=== PATIENT | male | born 1960 | race Caucasian/White ===

== ENCOUNTER 2017-03-06 15:36 | Observation (INO) ==
--- NOTE | 2017-03-06 16:06 | Emergency Department Note ---
Disposition Clinical Impression: Elevated troponin Disposition: Admitted As Inpatient Forms: Work/School Release, ED Satisfaction Letter Abdominal Pain HPI - General Chief Complaint: ED Abdominal Pain Stated Complaint: Left abd pain Time Seen by Provider: 03/06/17 15:46 Source: patient, family Nursing Notes Reviewed: Yes Vital Signs Reviewed: Yes - History of Present Illness HPI Narrative: Patient complains of 8 days of left upper quadrant abdominal pain. Patient denies shortness of breath associated with this. Patient was seen at an outside hospital for abdominal pain his workup was negative. Patient continued to have worsening pain to the side. Patient denies any injury denies numbness and tingling. Patient denies any shortness of breath or bowel bladder dysfunction associated. Patient denies any vision changes associated. He states he was told he had inflammation and to follow-up with his doctor. Pain Scale: 10 - Related Data Home Medications Medication Instructions Recorded Confirmed Lisinopril [Zestril] 20 mg PO DAILY 03/10/16 03/03/17 Hydrochlorothiazide 1 tab PO DAILY 03/03/17 03/03/17 Previous Rx's Medication Instructions Recorded Albuterol Sulfate [Albuterol 2 puff IH Q4-6H PRN #1 puff 12/12/15 Inhaler] Albuterol Neb [Proventil Neb] 2.5 mg IH Q4HR #40 vial.neb 11/28/16 Famotidine [Pepcid] 20 mg PO BID #30 tablet 03/03/17 Allergies Allergy/AdvReac Type Severity Reaction Status Date / Time No Known Allergies Allergy Verified 12/12/15 14:40 All systems ED: reviewed and negative except as stated. Abdominal Pain PMH - Past Medical History Medical history: Reports: asthma, COPD, hyperlipidemia, hypertension, other Male Surgical History: Reports: no surgical history Psychiatric history: Reports: no psych history - Social History Smoking status: Former smoker Alcohol use: Reports: occasionally Drug use: Reports: none Physical Exam - General Limitations: no limitations General appearance: alert, in distress - Head Head exam: atraumatic, normocephalic, normal inspection - Eye Eye exam: Present: normal appearance, PERRL, EOMI - ENT ENT exam: normal exam, normal oropharynx, mucous membranes moist - Neck Neck exam: Present: normal inspection, full ROM, trachea midline - Chest Chest inspection: Present: normal inspection, symmetric chest wall rise - Respiratory Respiratory exam: Present: normal lung sounds bilaterally - Cardiovascular Cardiovascular exam: Present: regular rate, normal rhythm, normal heart sounds - Abdominal Exam Abdominal exam: Present: soft, tenderness. Absent: distention, guarding, rebound Abdominal tenderness: Present: LUQ - Extremities Exam Extremities exam: Present: pedal edema. Absent: tenderness - Back Exam Back exam: Present: normal inspection, full ROM. Absent: tenderness - Neurological Exam Neurological exam: Present: alert, oriented X3 - Psychiatric Psychiatric exam: Present: normal affect, normal mood - Skin Skin exam: Present: warm, dry, intact, normal color Course Vital Signs Temperature 97.3 F L 03/06/17 15:38 Pulse Rate 85 03/06/17 15:38 Respiratory Rate 18 03/06/17 15:38 Blood Pressure 195/96 03/06/17 15:38 O2 Sat by Pulse Oximetry 93 03/06/17 15:38 Temperature 97.3 F L 03/06/17 15:38 Pulse Rate 85 03/06/17 15:38 Respiratory Rate 18 03/06/17 15:38 Blood Pressure 195/96 03/06/17 15:38 O2 Sat by Pulse Oximetry 92 03/06/17 17:18 Oxygen Delivery Oxygen Delivery Room Air Abdominal Pain - Differential Diagnosis Differential Diagnosis: Likely: abdominal pain non-specific, acute appendicitis , colonic obstruction, diverticulitis, gastroenteritis, pancreatitis - Lab Data Lab results reviewed: Yes I reviewed the patient's lab results. Result diagrams: 03/06/17 16:12 03/06/17 16:12 Lab Results 03/06/17 03/06/17 03/06/17 Range/Units 16:12 16:12 16:12 WBC 7.7 (4.3-11.1) K/mcL RBC 4.84 (4.19-5.50) M/mcL Hgb 15.1 (12.9-16.9) g/dL Hct 45.9 (37.5-50.1) % MCV 94.8 (83.0-100.0) fL MCH 31.2 (28.0-33.3) pg MCHC 32.9 (31.6-35.5) g/dL RDW 12.9 (11.5-14.5) % Plt Count 111 L (140-400) K/mcL MPV 13.1 H (9.4-12.4) fL Immature Gran % 0.4 (0-4) % Seg Neutrophils % 67.5 % Lymphocytes % 20.5 % Monocytes % 8.8 % Eosinophils % 1.9 % Basophils % 0.9 % Neutrophils # 5.2 (1.6-8.9) K/mcL Lymphocytes # 1.6 (0.6-4.6) K/mcL Monocytes # 0.7 (0.0-1.3) K/mcL Eosinophils # 0.2 (0.0-0.6) K/mcL Basophils # 0.1 (0.0-0.2) K/mcL Sodium 139 (136-145) mEq/L Potassium 3.7 (3.5-4.5) mEq/L Chloride 99 (98-109) mEq/L Carbon Dioxide 30 H (19-29) mEq/L BUN 14 (8-26) mg/dL Creatinine 1.12 (0.72-1.25) mg/dL Est GFR ( Amer) > 60 (> 60) Est GFR (Non-Af Amer) > 60 (> 60) BUN/Creatinine Ratio 13 (6-26) Glucose 175 H (70-99) mg/dL Calculated Osmolality 293 (280-300) Lactic Acid 1.9 (0.5-2.2) mmol/L Calcium 9.7 (8.6-10.8) mg/dL Total Bilirubin 0.8 (0.2-1.2) mg/dL AST 49 H (5-34) Units/L ALT 53 (0-55) Units/L Alkaline Phosphatase 59 (38-126) Units/L Troponin I (0-0.03) ng/mL B-Natriuretic Peptide (0-100) pg/mL Serum Total Protein 7.5 (6.0-8.3) g/dL Albumin 3.7 (3.5-5.0) g/dL Globulin 3.8 H (2.4-3.5) g/dL Albumin/Globulin Ratio 1.0 L (1.1-2.2) Lipase 47 (8-78) Units/L Urine Color (Yellow) Urine Clarity (Clear) Urine pH (5.0-8.0) pH Units Ur Specific [place] (1.010-1.025) Urine Protein (Neg-Trace) mg/dL Urine Glucose (UA) (Normal) mg/dL Urine Ketones (Negative) mg/dL Urine Blood (Negative) Urine Nitrite (Negative) Urine Bilirubin (Negative) Urine Urobilinogen (Normal) mg/dL Ur Leukocyte Esterase (Negative) Urine Microscopic RBC (0-3) per hpf Urine Microscopic WBC (0-3) per hpf Ur Squamous Epith Cells (None-Few) per lpf Urine Bacteria (None-Few) per hpf Hyaline Casts (None-Few) per lpf Ur Culture Indicated? (NO) 03/06/17 03/06/17 03/06/17 Range/Units 16:12 16:12 17:22 WBC (4.3-11.1) K/mcL RBC (4.19-5.50) M/mcL Hgb (12.9-16.9) g/dL Hct (37.5-50.1) % MCV (83.0-100.0) fL MCH (28.0-33.3) pg MCHC (31.6-35.5) g/dL RDW (11.5-14.5) % Plt Count (140-400) K/mcL MPV (9.4-12.4) fL Immature Gran % (0-4) % Seg Neutrophils % % Lymphocytes % % Monocytes % % Eosinophils % % Basophils % % Neutrophils # (1.6-8.9) K/mcL Lymphocytes # (0.6-4.6) K/mcL Monocytes # (0.0-1.3) K/mcL Eosinophils # (0.0-0.6) K/mcL Basophils # (0.0-0.2) K/mcL Sodium (136-145) mEq/L Potassium (3.5-4.5) mEq/L Chloride (98-109) mEq/L Carbon Dioxide (19-29) mEq/L BUN (8-26) mg/dL Creatinine (0.72-1.25) mg/dL Est GFR ( Amer) (> 60) Est GFR (Non-Af Amer) (> 60) BUN/Creatinine Ratio (6-26) Glucose (70-99) mg/dL Calculated Osmolality (280-300) Lactic Acid (0.5-2.2) mmol/L Calcium (8.6-10.8) mg/dL Total Bilirubin (0.2-1.2) mg/dL AST (5-34) Units/L ALT (0-55) Units/L Alkaline Phosphatase (38-126) Units/L Troponin I 0.04 H* (0-0.03) ng/mL B-Natriuretic Peptide 223 H (0-100) pg/mL Serum Total Protein (6.0-8.3) g/dL Albumin (3.5-5.0) g/dL Globulin (2.4-3.5) g/dL Albumin/Globulin Ratio (1.1-2.2) Lipase (8-78) Units/L Urine Color Yellow (Yellow) Urine Clarity Clear (Clear) Urine pH 6.0 (5.0-8.0) pH Units Ur Specific [place] 1.019 (1.010-1.025) Urine Protein Trace (Neg-Trace) mg/dL Urine Glucose (UA) Normal (Normal) mg/dL Urine Ketones Negative (Negative) mg/dL Urine Blood Negative (Negative) Urine Nitrite Negative (Negative) Urine Bilirubin Negative (Negative) Urine Urobilinogen Normal (Normal) mg/dL Ur Leukocyte Esterase Negative (Negative) Urine Microscopic RBC 3-5 H (0-3) per hpf Urine Microscopic WBC 0-3 (0-3) per hpf Ur Squamous Epith Cells Moderate H (None-Few) per lpf Urine Bacteria None Seen (None-Few) per hpf Hyaline Casts None Seen (None-Few) per lpf Ur Culture Indicated? NO (NO) - Radiology Data Radiology results reviewed: Yes I reviewed the patient's radiology results. - EKG Data EKG attestation: Yes I reviewed and interpreted this EKG. EKG results narrative: EKG is unchanged from previous EKG shows normal: sinus rhythm Rate: normal Rhythm: NSR Critical Care Time Total Critical Care Time: 30 Attestation: Critical care performed: Time is exclusive of separately billable procedures. Time includes: direct patient care, patient reassessment, coordination of patient care, interpretation of data (laboratory data, radiology data, and respiratory data), review of patient's medical records, medical consultation and documentation of patient care. Procedures included in critical care time: Procedures excluded from critical care time:
[2017-03-06 16:21] LABS: Basophils # 0.1 K/mcL (0.0-0.2); Basophils % 0.9 %; Eosinophils # 0.2 K/mcL (0.0-0.6); Eosinophils % 1.9 %; Hematocrit 45.9 % (37.5-50.1); Hemoglobin 15.1 g/dL (12.9-16.9); Immature Granulocytes % 0.4 % (0-4); Lymphocytes # 1.6 K/mcL (0.6-4.6); Lymphocytes % 20.5 %; Mean Corpuscular HGB Conc 32.9 g/dL (31.6-35.5); Mean Corpuscular Hemoglobin 31.2 pg (28.0-33.3); Mean Corpuscular Volume 94.8 fL (83.0-100.0); Mean Platelet Volume 13.1 fL (9.4-12.4); Monocytes # 0.7 K/mcL (0.0-1.3); Monocytes % 8.8 %; Neutrophils # 5.2 K/mcL (1.6-8.9); Platelet Count 111 K/mcL (140-400); Red Blood Count 4.84 M/mcL (4.19-5.50); Red Cell Distribution Width 12.9 % (11.5-14.5); Segmented Neutrophils % 67.5 %
[2017-03-06 16:40] LABS: Alanine Aminotransferase 53 Units/L (0-55); Albumin 3.7 g/dL (3.5-5.0); Alkaline Phosphatase 59 Units/L (38-126); Aspartate Amino Transferase 49 Units/L (5-34); BUN/Creatinine Ratio 13 (6-26); Bilirubin,Total 0.8 mg/dL (0.2-1.2); Blood Urea Nitrogen 14 mg/dL (8-26); Calcium 9.7 mg/dL (8.6-10.8); Carbon Dioxide 30 mEq/L (19-29); Chloride 99 mEq/L (98-109); Globulin 3.8 g/dL (2.4-3.5); Glucose 175 mg/dL (70-99); Lipase 47 Units/L (8-78); Osmolality,Calculated 293 (280-300); Potassium 3.7 mEq/L (3.5-4.5); Sodium 139 mEq/L (136-145); Total Protein 7.5 g/dL (6.0-8.3); eGFR For African Americans > 60 (> 60); eGFR For Non-African Americans > 60 (> 60)
[2017-03-06 17:33] LABS: Bilirubin,Urine Negative (Negative); Blood,Urine Negative (Negative); Clarity,Urine Clear (Clear); Color,Urine Yellow (Yellow); Glucose,Urine (UA) Normal (Normal); Ketones,Urine Negative (Negative); Leukocyte Esterase,Urine Negative (Negative); Nitrite,Urine Negative (Negative); Protein,Urine Trace mg/dL (Neg-Trace); Specific Gravity,Urine 1.019 (1.010-1.025); Urobilinogen,Urine Normal (Normal)
[2017-03-06 17:34] LABS: Bacteria,Urine None Seen per hpf (None-Few); Hyaline Casts,Urine None Seen per lpf (None-Few); Squamous Epithelial Cell,Urine Moderate per lpf (None-Few); WBC,Urine 0-3 per hpf (0-3)
[2017-03-06] MEDS ORDERED: *HR* Morphine 2 MG/ML SYRINGE IV ONE (17:55)
--- NOTE | 2017-03-06 20:44 | Internal Med History&Physical ---
<Sara Almodovar - Last Filed: 03/06/17 21:39> Date of Encounter: 03/06/17 Time of Encounter: 19:30 Assessment and Plan (1) Elevated troponin Current visit: Yes Status: Acute - Elevated troponin at 0.04 in ED. - EKG is similar to prior one in 2013 without significant ischemic change. - Patient does have cardiovascular risk factors including HTN, hyperlipidemia, obesity and smoking history. - Start aspirin and statin. - Continue to trend troponin. - Telemetry monitoring. (2) CHF (congestive heart failure) Current visit: Yes Status: Suspected - Concern of congestion heart failure given reported worsening weight gain and BLE swelling with recent abnormal echo. - Per [facility] record, echocardiogram done in August 2016 found normal LV systolic function but cannot rule out regional motion abnormality given the poor quality of study. - Will obtain echocardiogram for further evaluation. - Strict I/O, daily weight and fluid restriction. - Consider diuresis. Qualifiers: Congestive heart failure type: unspecified congestive heart failure type Congestive heart failure chronicity: unspecified congestive heart failure chronicity Qualified Code(s): I50.9 - Heart failure, unspecified (3) Abdominal pain Current visit: No Status: Acute - CT A/P on 03/03: No acute abnormality. Small fat containing ventral hernia noted. - XR chest and abdomen on 03/06: nonspecific gas pattern but no evidence of distention, obstruction or perforation. - LUQ/left flank pain most likely musculoskeletal given the pain is reproducible on palpation and unremarkable abdominal imagings. - Pain control with heating pad and prn Tylenol. Qualifiers: Abdominal location: left upper quadrant Qualified Code(s): R10.12 - Left upper quadrant pain (4) Hypertension Current visit: Yes Status: Chronic - Continue home antihypertensive regimen. Qualifiers: Hypertension type: essential hypertension Qualified Code(s): I10 - Essential (primary) hypertension (5) Hyperlipidemia Current visit: Yes Status: Chronic - Will check lipid panel. Qualifiers: Hyperlipidemia type: unspecified Qualified Code(s): E78.5 - Hyperlipidemia , unspecified (6) COPD (chronic obstructive pulmonary disease) Current visit: Yes Status: Suspected - Patient likely has undiagnosed COPD given his significant smoking history and occasional wheezes noted on lung auscultation. - Bronchodilator prn. Qualifiers: COPD type: unspecified COPD Qualified Code(s): J44.9 - Chronic obstructive pulmonary disease, unspecified (7) DVT prophylaxis Current visit: Yes Status: Acute - SQ heparin. Internal Medicine - H&P: HPI Chief complaint: LUQ/left flank pain Admitted From: Emergency Dept Plans for Post Hospital Care: Home History of present illness: Mr. Wade is a 56 year old male with PMH of HTN and hyperlipidemia who presented to [facility] ED with 9-day history of LUQ/left flank pain. Patient describes the pain as constant dull pain aggravated by moving but it's not affected by eating and no alleviating factor. Patient denies known recent trauma or injury but thinks he may injury during sleepwalking. Patient also reports worsening bilateral lower extremity edema with weight gain of 25 lbs over past one month. Patient denies chest pain/discomfort, diaphoresis, palpitation, lightheadedness, syncope, dyspnea, cough, nausea, vomiting, diarrhea, constipation, hematochezia, melena, hematuria, dysuria, fever, chills. Patient denies having any known cardiac diagnosis but reports having echocardiogram done at [facility] 2 months ago and was told to have some abnormal findings which patient cannot recall at this time. Patient currently smokes e-cigarette but did smoke 1 &1/2 packs per day for 25 years. Patient denies being diagnosed with COPD or sleep apnea but does admit snoring at sleep. Patient is full code. Past Med Surg Social Fam HX - Past Medical History Medical history: hyperlipidemia, hypertension, other Psychiatric history: no psych history - Past Surgical History Surgical History: no surgical history - Social History Smoking Status: Former smoker Smokeless Tobacco Status: No Alcohol use: occasionally Drug use: none - Family History Father Living Status: Hx Family Cardiac Disorders: Yes (HTN, hyperlipidemia) Hx Family Respiratory Disorders: No Hx Family Cancer: No Hx Family GI Disorders: No Hx Family Genitourinary Disorders: No Hx Family Endocrine Disorder: No Hx Family Musculoskeletal Disorders: No Hx Family Neuromuscular Disorders: No Hx Family Neurologic Disorders: Yes (CVA) Hx Family HEENT Disorders: No Hx Family Autoimmune Disorders: No Hx Family Reproductive Disorders: No Hx Family Psychosocial Disorders: No Hx Family Medical Disorders: No Internal Medicine - H&P: Meds Lisinopril [Zestril] 20 mg PO DAILY 03/10/16 [History] Hydrochlorothiazide 10 tab PO DAILY 03/03/17 [History] Allergies No Known Allergies Allergy (Verified 12/12/15 14:40) All Systems PM: A 10-system review of systems was performed and is negative for pertinent findings except as documented above in the HPI. - Constitutional Constitutional: weight gain, no anorexia, no chills, no fever(s) - EENT Eyes: no change in vision Ears: no decreased hearing Nose, mouth and throat: no dysphagia, no odynophagia - Cardiovascular Cardiovascular ROS IM: edema, no chest pain, no diaphoresis, no lightheadedness , no palpitations, no syncope - Respiratory Respiratory: snoring, no cough, no dyspnea, no hemoptysis - Gastrointestinal Gastrointestinal: as per HPI, no hematemesis, no melena, no nausea, no vomiting - Genitourinary Genitourinary ROS male: no difficulty urinating, no dysuria, no hematuria - Musculoskeletal Musculoskeletal ROS IM: no arthralgias, no back pain - Integumentary Integumentary IM: no pruritus, no rash - Neurological Neurological ROS: no focal weakness, no numbness, no tingling - Hematologic/Lymphatic Hematologic/Lymphatic: no easy bleeding, no easy bruising - Constitutional Vitals: Temp Pulse Resp BP Pulse Ox 97.9 F 63 18 165/84 92 03/06/17 18:58 03/06/17 18:58 03/06/17 18:58 03/06/17 18:58 03/06/17 18:58 General appearance: Present: cooperative, A&O X 3, no acute distress, obese, answers questions appropriately - Head Head exam: Present: atraumatic, normocephalic - Eye Eye exam: Present: PERRL, conjuntiva pink, sclera anicteric Pupils: Present: PERRL - Neck Neck exam general surgery: Present: supple, trachea midline. Absent: lymphadenopathy - Respiratory Respiratory exam: Present: decreased breath sounds, wheezes (Occasional). Absent: accessory muscle use, rales, rhonchi - Cardiovascular Cardiovascular exam: Present: RRR, +S1, +S2. Absent: diastolic murmur, gallop, rubs, systolic murmur - GI/Abdominal GI/Abdominal exam: Present: distended, normal bowel sounds, soft, tenderness ( LUQ/left flank pain reproducible with palpation. ), no peritoneal signs - Extremities Exam Extremities exam: Present: pedal edema (Moderate non-pitting BLE edema), warm, radial pulses palpable and symetrical. Absent: calf tenderness, cyanotic - Neurological Exam Neurological exam: Present: CN II-XII intact, oriented X3, no focal deficits. Absent: pronater drift, facial droop, speech deficit - Skin Skin exam: Present: dry, intact, warm Internal Med - H&P Results - Labs CBC & Chem 7: 03/06/17 16:12 03/06/17 16:12 <Brandon Sharpe H - Last Filed: 03/06/17 21:41> Date of Encounter: 03/06/17 Internal Medicine - H&P: HPI History of present illness: Mr. Wade is a 56 year old male All Systems PM: A 10-system review of systems was performed and is negative for pertinent findings except as documented above in the HPI. - Constitutional Vitals: Temp Pulse Resp BP Pulse Ox 97.9 F 63 18 165/84 92 03/06/17 18:58 03/06/17 18:58 03/06/17 18:58 03/06/17 18:58 03/06/17 18:58 Internal Med - H&P Results - Labs CBC & Chem 7: 03/06/17 16:12 03/06/17 16:12 - Attending Attestation Consider possible pleurodinia ( [place] disease unlikely) versus true cardiac etiology, vs acute costochondritis order x ray of left ribs, stress test repeat echocardiogram follow troponins admit for observation I examined this patient and my medical decision-making was reviewed with the ASSET PROTECTION ASSISTANT/PA/Advanced Practice Nurse/Resident Physician. I agree with the documented findings, disposition and treatment plan as described except to the extent set forth below.
[2017-03-06] MEDS ORDERED: Aspirin 81 MG TAB.CHEW PO STA (21:16)
[2017-03-06] MEDS ORDERED: Ipratropium/Albuterol Neb 3 ML IH PRN (21:25)
[2017-03-06] MEDS: *HR* Heparin 5,000 UNIT/ML VIAL SQ SCH (22:12)
[2017-03-06] MEDS: *HR* OxyCODONE/APAP 5/325 TABLET PO PRN (23:08)
[2017-03-06] MEDS: ALPRAZolam 0.25 MG TABLET PO PRN (23:09)
[2017-03-07 02:57] LABS: Basophils # 0.1 K/mcL (0.0-0.2); Eosinophils # 0.2 K/mcL (0.0-0.6); Eosinophils % 3.4 %; Hematocrit 48.5 % (37.5-50.1); Hemoglobin 15.4 g/dL (12.9-16.9); Immature Granulocytes % 0.9 % (0-4); Lymphocytes # 1.7 K/mcL (0.6-4.6); Lymphocytes % 25.6 %; Mean Corpuscular HGB Conc 31.8 g/dL (31.6-35.5); Mean Corpuscular Hemoglobin 30.7 pg (28.0-33.3); Mean Corpuscular Volume 96.6 fL (83.0-100.0); Mean Platelet Volume 13.3 fL (9.4-12.4); Monocytes # 0.7 K/mcL (0.0-1.3); Monocytes % 10.5 %; Platelet Count 108 K/mcL (140-400); Red Blood Count 5.02 M/mcL (4.19-5.50); Segmented Neutrophils % 58.6 %
[2017-03-07 03:03] LABS: Hemoglobin A1C 6.7 %
[2017-03-07 03:10] LABS: BUN/Creatinine Ratio 12 (6-26); Blood Urea Nitrogen 14 mg/dL (8-26); Calcium 9.7 mg/dL (8.6-10.8); Carbon Dioxide 37 mEq/L (19-29); Chloride 98 mEq/L (98-109); Cholesterol 167 mg/dL (< 200); Glucose 108 mg/dL (70-99); HDL Cholesterol 24 mg/dL (40-59); LDL Cholesterol,Calculated 92 mg/dL (0-99); Osmolality,Calculated 293 (280-300); Potassium 3.8 mEq/L (3.5-4.5); Sodium 141 mEq/L (136-145); Triglycerides 253 mg/dL (< 150); eGFR For African Americans > 60 (> 60); eGFR For Non-African Americans > 60 (> 60)
[2017-03-07] MEDS: *HR* Heparin 5,000 UNIT/ML VIAL SQ SCH ×3 (04:34→21:34)
[2017-03-07] MEDS ORDERED: *HR* Morphine 2 MG/ML SYRINGE IV PRN (05:47)
[2017-03-07] MEDS ORDERED: Regadenoson 0.4 MG/5 ML SYRINGE IVP ONE (08:56)
[2017-03-07] MEDS ORDERED: Lisinopril 20 MG TABLET PO SCH (09:00)
[2017-03-07] MEDS ORDERED: hydroCHLOROthiazide 25 MG TABLET PO SCH (09:00)
[2017-03-07] MEDS: *HR* OxyCODONE/APAP 5/325 TABLET PO PRN ×2 (11:56→19:02)
[2017-03-07] MEDS ORDERED: *HR* LORazepam 2 MG/ML VIAL IVP PRN (12:05)
--- NOTE | 2017-03-07 12:11 | Internal Med Progress Note ---
Date of Encounter: 03/07/17 Time of Encounter: 12:11 - Assessment and plan (1) Abdominal pain Current Visit: Yes Status: Acute Assessment and plan: unclear etiology. 03/03: CT abdomen/pelvis showed no acute intraabdominal process. normal spleen and kidneys. small fat ventral hernia. elevated troponin at 0.04-0.03-0.04. continue pain control. add flexeril. adjust BP meds. stress test and echo ordered. continue aspirin, coreg, BP meds and start lasix. Qualifiers: Abdominal location: left upper quadrant Qualified Code(s): R10.12 - Left upper quadrant pain (2) Thrombocytopenia Current Visit: Yes Status: Acute Assessment and plan: new diagnosis. spleen is normal in CT abdomen/pelvis. check doppler of abdomen, ldh, hiv, hepatitis panel, inr, ptt, ddimer, fibrinogen, folate, b12, ft4, uric acid, blood smear. no bleeding. close monitoring. (3) Leg edema Current Visit: Yes Status: Acute Assessment and plan: echo ordered. trace protein in urine. Qualifiers: Laterality: bilateral Qualified Code(s): R60.0 - Localized edema (4) Elevated troponin Current Visit: Yes Status: Acute Assessment and plan: mild elevated troponin. EKG no acute changes. no chest pain. no shortness of breath. (5) Hypertension Current Visit: Yes Status: Acute Assessment and plan: BP is 195/96. continue lisinopril. start amlodipine. hydralazine prn. Qualifiers: Hypertension type: essential hypertension Qualified Code(s): I10 - Essential (primary) hypertension (6) COPD (chronic obstructive pulmonary disease) Current Visit: Yes Status: Suspected Assessment and plan: stable. nebs. Qualifiers: COPD type: unspecified COPD Qualified Code(s): J44.9 - Chronic obstructive pulmonary disease, unspecified - Subjective Interval history: patient complains of left rib and LUQ pain. no chest pain. no shortness of breath. he reports swelling of extremities for the past 4 months - Constitutional Vitals: Temp Pulse Resp BP Pulse Ox 98.0 F 66 17 178/108 95 03/07/17 11:34 03/07/17 11:34 03/07/17 11:34 03/07/17 11:34 03/07/17 11:34 General appearance: Present: cooperative, A&O X 3, morbidly obese, pleasant, no acute distress, answers questions appropriately - Respiratory Respiratory exam: Present: CTAB - Cardiovascular Cardiovascular exam: Present: RRR - GI/Abdominal GI/Abdominal exam: Present: normal bowel sounds, soft. Absent: distended, tenderness - Extremities Exam Extremities exam: Present: pedal edema (1+ LE edema up to the knees) - Back Exam Back exam: Absent: CVA tenderness (L), CVA tenderness (R) - Neurological Exam Neurological exam: Present: alert, no focal deficits, strengths equal and symetr throughout. Absent: facial droop, speech deficit - Skin Skin exam: Absent: rash Internal Medicine: Result - Labs CBC & Chem 7: 03/07/17 02:18 03/07/17 02:18 Labs: Short CBC 03/06/17 03/07/17 03/07/17 Range/Units 22:01 02:18 02:18 WBC 6.8 (4.3-11.1) K/mcL RBC 5.02 (4.19-5.50) M/mcL Hgb 15.4 (12.9-16.9) g/dL Hct 48.5 (37.5-50.1) % MCV 96.6 (83.0-100.0) fL MCH 30.7 (28.0-33.3) pg MCHC 31.8 (31.6-35.5) g/dL RDW 13.0 (11.5-14.5) % Plt Count 108 L (140-400) K/mcL MPV 13.3 H (9.4-12.4) fL Immature Gran % 0.9 (0-4) % Seg Neutrophils % 58.6 % Lymphocytes % 25.6 % Monocytes % 10.5 % Eosinophils % 3.4 % Basophils % 1.0 % Neutrophils # 4.0 (1.6-8.9) K/mcL Lymphocytes # 1.7 (0.6-4.6) K/mcL Monocytes # 0.7 (0.0-1.3) K/mcL Eosinophils # 0.2 (0.0-0.6) K/mcL Basophils # 0.1 (0.0-0.2) K/mcL Sodium 141 (136-145) mEq/L Potassium 3.8 (3.5-4.5) mEq/L Chloride 98 (98-109) mEq/L Carbon Dioxide 37 H (19-29) mEq/L BUN 14 (8-26) mg/dL Creatinine 1.14 (0.72-1.25) mg/dL Est GFR ( Amer) > 60 (> 60) Est GFR (Non-Af Amer) > 60 (> 60) BUN/Creatinine Ratio 12 (6-26) Glucose 108 H (70-99) mg/dL Est Mean Plasma Glucose mg/dl Hemoglobin A1c ( - 5.6) % Calculated Osmolality 293 (280-300) Calcium 9.7 (8.6-10.8) mg/dL Troponin I 0.03 (0-0.03) ng/mL Triglycerides 253 H (< 150) mg/dL Cholesterol 167 (< 200) mg/dL LDL Cholesterol, Calc 92 (0-99) mg/dL VLDL Cholesterol, Calc 51 H (< 31) mg/dL HDL Cholesterol 24 L (40-59) mg/dL Cholesterol/HDL Ratio 7.0 H (0-4.9) TSH (0.350-4.840) mcIU/mL 03/07/17 03/07/17 03/07/17 Range/Units 02:18 02:18 02:18 WBC (4.3-11.1) K/mcL RBC (4.19-5.50) M/mcL Hgb (12.9-16.9) g/dL Hct (37.5-50.1) % MCV (83.0-100.0) fL MCH (28.0-33.3) pg MCHC (31.6-35.5) g/dL RDW (11.5-14.5) % Plt Count (140-400) K/mcL MPV (9.4-12.4) fL Immature Gran % (0-4) % Seg Neutrophils % % Lymphocytes % % Monocytes % % Eosinophils % % Basophils % % Neutrophils # (1.6-8.9) K/mcL Lymphocytes # (0.6-4.6) K/mcL Monocytes # (0.0-1.3) K/mcL Eosinophils # (0.0-0.6) K/mcL Basophils # (0.0-0.2) K/mcL Sodium (136-145) mEq/L Potassium (3.5-4.5) mEq/L Chloride (98-109) mEq/L Carbon Dioxide (19-29) mEq/L BUN (8-26) mg/dL Creatinine (0.72-1.25) mg/dL Est GFR ( Amer) (> 60) Est GFR (Non-Af Amer) (> 60) BUN/Creatinine Ratio (6-26) Glucose (70-99) mg/dL Est Mean Plasma Glucose 146 mg/dl Hemoglobin A1c 6.7 H ( - 5.6) % Calculated Osmolality (280-300) Calcium (8.6-10.8) mg/dL Troponin I 0.04 H* (0-0.03) ng/mL Triglycerides (< 150) mg/dL Cholesterol (< 200) mg/dL LDL Cholesterol, Calc (0-99) mg/dL VLDL Cholesterol, Calc (< 31) mg/dL HDL Cholesterol (40-59) mg/dL Cholesterol/HDL Ratio (0-4.9) TSH 5.081 H (0.350-4.840) mcIU/mL BMP 03/07/17 02:18 Sodium 141 Potassium 3.8 Chloride 98 Carbon Dioxide 37 H BUN 14 Creatinine 1.14 Glucose 108 H Calcium 9.7 Cardiac Enzymes 03/06/17 03/07/17 Range/Units 22:01 02:18 Troponin I 0.03 0.04 H* (0-0.03) ng/mL - Impressions Impressions Ribs X-Ray 03/06/17 21:40 IMPRESSION: No acute findings D/ / Janet Gaviria MD / Janet Gaviria MD Interpreting Provider: Janet Gaviria MD Consult Discharge Plan - Plan Referrals: Norah Smyth, DORIS [Primary Care Provider] -
[2017-03-07] MEDS ORDERED: Furosemide 40 MG/4 ML VIAL IVP SCH (12:15)
[2017-03-07 16:22] LABS: Immature Reticulocyte % 18.2 % (11.0-38.0); Retculocyte # 0.12 M/mcL (0.05-0.10); Reticulocyte % 2.4 % (1.6-2.8)
[2017-03-07 16:28] LABS: Prothrombin Time 11.3 Seconds (9.4-12.1)
[2017-03-07 16:30] LABS: Activated Partial Thrombo Time 30.8 Seconds (26.0-36.0)
[2017-03-07 17:01] LABS: Fibrinogen 352 mg/dL (169-393)
[2017-03-07 17:02] LABS: D-Dimer 909 ng/mLFEU (0-500)
[2017-03-07 17:10] LABS: Hepatitis B Surface Antigen Nonreactive (Nonreactive)
[2017-03-07 17:25] LABS: Folate 15.4 ng/mL (7.0-31.4)
[2017-03-07] MEDS ORDERED: MOM Conc 10 ML UD.LIQ PO ONE (21:36)
[2017-03-07] MEDS: ALPRAZolam 0.25 MG TABLET PO PRN (21:53)
[2017-03-08 05:20] LABS: Basophils # 0.1 K/mcL (0.0-0.2); Eosinophils # 0.2 K/mcL (0.0-0.6); Eosinophils % 2.6 %; Hematocrit 52.9 % (37.5-50.1); Immature Granulocytes % 0.5 % (0-4); Lymphocytes % 21.6 %; Mean Corpuscular HGB Conc 32.5 g/dL (31.6-35.5); Mean Corpuscular Hemoglobin 31.6 pg (28.0-33.3); Mean Corpuscular Volume 97.1 fL (83.0-100.0); Mean Platelet Volume 13.3 fL (9.4-12.4); Monocytes # 0.7 K/mcL (0.0-1.3); Monocytes % 7.8 %; Neutrophils # 6.2 K/mcL (1.6-8.9); Platelet Count 116 K/mcL (140-400); Red Blood Count 5.45 M/mcL (4.19-5.50); Red Cell Distribution Width 13.2 % (11.5-14.5); Segmented Neutrophils % 66.5 %
[2017-03-08 05:25] LABS: Hemoglobin 17.2 g/dL (12.9-16.9)
[2017-03-08 05:36] LABS: Albumin 3.9 g/dL (3.5-5.0); Albumin/Globulin Ratio 0.9 (1.1-2.2); BUN/Creatinine Ratio 16 (6-26); Bilirubin,Direct 0.4 mg/dL (0.0-0.5); Bilirubin,Indirect 0.7 mg/dL (0.0-1.2); Bilirubin,Total 1.1 mg/dL (0.2-1.2); Blood Urea Nitrogen 18 mg/dL (8-26); Calcium 9.8 mg/dL (8.6-10.8); Carbon Dioxide 30 mEq/L (19-29); Chloride 99 mEq/L (98-109); Globulin 4.3 g/dL (2.4-3.5); Glucose 115 mg/dL (70-99); Magnesium 2.5 mg/dL (1.6-2.6); Osmolality,Calculated 293 (280-300); Phosphorous 3.5 mg/dL (2.3-4.7); Potassium 4.1 mEq/L (3.5-4.5); Sodium 140 mEq/L (136-145); Total Protein 8.2 g/dL (6.0-8.3); eGFR For African Americans > 60 (> 60); eGFR For Non-African Americans > 60 (> 60)
[2017-03-08] MEDS: *HR* Heparin 5,000 UNIT/ML VIAL SQ SCH ×3 (05:41→20:25)
[2017-03-08] MEDS: Lisinopril 20 MG TABLET PO SCH ×2 (08:28→20:22)
[2017-03-08] MEDS: *HR* OxyCODONE/APAP 5/325 TABLET PO PRN ×2 (08:29→18:34)
[2017-03-08] MEDS: Aspirin 81 MG TAB.CHEW PO SCH (08:29)
[2017-03-08] MEDS: amLODIPine 5 MG TABLET PO SCH (08:29)
--- NOTE | 2017-03-08 08:37 | Nuclear Medicine Stress Report ---
Regadenoson Nuclear 2 day Name: Ranulfo Wade Date of Study: 03/07/2017 Date: 1960 Ht: 70.0 in Medical Record#: [id number] Age: 56 Wt: 337.0 lb Gender: Male Order #: [id number] Location: [facility] Room: [facility] Supervising Provider: Janice Tolentino CNP Reading Physician: Terese Stein DO Ordering Physician: Elizabeth Olmos MD Primary Care Physician: Norah Smyth CNP Stress Technologist: Jourdan Rosado RRT, CCT Tree Specialist: Lawrence Warren Indications: Chest Pain Impression: Perfusion imaging was positive for mild reversible ischemia (see Findings below). Pharmacologic ECG was non diagnostic for ischemia due to abnormal baseline ECG. Gated EF = 34%. Ordering physician made aware of findings. History: Hypertension Hypercholesteremia Stress Test Summary: Stress Test Type: Pharmacologic Regadenoson 0.4mg/5ml given IV Baseline Information: Initial Heart Rate: 64 Blood Pressure: 144/94 Stress Information: Stress Time: 4 min 00 sec Test Terminated Due to (primary): Completed Protocol Maximum Blood Pressure: 160/100 Maximum Heart Rate: 85 Percent Maximum Heart Rate Achieved: 52 Double Product: 13,600 METS Reached: 1 Symptoms: Shortness of breath, [place] Nuclear Summary: SPECT myocardial perfusion imaging using Tc99m Sestamibi given intravenously was performed at rest and following cardiac stress testing. The resting images were obtained following initial dose of 33.9 mCi. Following stress an additional dose of 35.6 mCi was given at peak exercise or 30 seconds post regadenoson infusion. Medication Given: Time Medication Dose Units Route Findings: Stress Note * Resting ECG demonstrated normal sinus rhythm with marked ST and T wave abnormalities. * Pharmacologic stress ECG is non diagnostic for ischemia due to baseline non-specific ST and T changes. * No arrhythmias were noted during stress. * Patient had no chest pain during stress. Hemodynamic responses * Normal hemodynamic responses to pharmacologic stress. Study Quality * Study quality was challenging due to body habitus. This was a 2-day study. Gated EF % * Gated EF = 34%. Left Ventricle * The left ventricle is dilated by volumes but not by qualitative measures. NORMALS * Normal wall motion. TID * No evidence of transient ischemic dilatation. Lung Uptake * There is no evidence of increase lung uptake. PERFUSION * There is a small sized, primarily fixed perfusion defect of mild intensity involving the basal and mid inferolateral wall. Wall motion is normal in this area. Findings most likely represent artifact. * During stress images, there is a mild intensity perfusion defect involving the mid to distal inferolateral wall. Findings may represent mild reversible ischemia. Updated by Terese Stein on 03/08/2017 8:28:26 AM electronically signed on 03/08/2017 8:32:57 AM with status of Final
[2017-03-08] MEDS ORDERED: amLODIPine 5 MG TABLET PO SCH (09:00)
--- NOTE | 2017-03-08 09:26 | Electrocardiograph Report ---
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
[2017-03-08 10:21] LABS: HIV-1&2 Antibody & p24 Ag Nonreactive (Nonreactive); Hepatitis A Antibody IgM Nonreactive (Nonreactive); Hepatitis B Core IgM Nonreactive (Nonreactive); Hepatitis C Virus Antibody Nonreactive (Nonreactive)
--- NOTE | 2017-03-08 10:48 | Cardiology Consult Note ---
Date of Encounter: 03/08/17 Time of Encounter: 10:30 Assessment and Plan (1) Abnormal stress test Current Visit: Yes Status: Acute Patient presented with atypical chest pain symptoms; likely musculoskeletal in etiology. ECG unchanged from previous. Risk factors for CAD: HTN (poorly controlled as outpatient), HLD, obesity, and tobacco use. Nuclear stress test was completed today (2-day study): Mild reversible ischemia in the mid-distal inferolateral loja, gated EF 34%; challenging 2-day study d/ t body habitus. Obtain echocardiogram (use definity) to further evaluate LVEF, assess for SWMA Continue asa, statin, and betablocker. Further recommendations to follow TTE results. (2) Tobacco abuse Current Visit: Yes Status: Chronic Reports quit smoking cigarettes 1-2 months ago, now utilizes e-cigarettes. Smoking cessation counseling provided. (3) Hypertension Current Visit: Yes Status: Chronic Accelerated HTN upon presentation, now controlled as inpatient. Adjust medications accordingly. Qualifiers: Hypertension type: essential hypertension Qualified Code(s): I10 - Essential (primary) hypertension (4) Hyperlipidemia Current Visit: Yes Status: Chronic Continue statin as started by IM. Risk factor modification. Qualifiers: Hyperlipidemia type: unspecified Qualified Code(s): E78.5 - Hyperlipidemia , unspecified (5) Sleep apnea Current Visit: Yes Status: Acute STOP-BANG score 7-8; he likely has GURPREET. Utilized bipap overnight, states slept well. Recommend outpatient sleep study AYUSH, defer further mgmt to primary service. Nocturnal pauses seen are likely secondary to untreated GURPREET. Qualifiers: Sleep apnea type: obstructive Qualified Code(s): G47.33 - Obstructive sleep apnea (adult) (pediatric) Discussion w patient/family: The assessment and plan as outlined above was discussed with the patient and/or family members who expressed understanding and agreement. All questions were answered. Thank you for involving us in the care of your patient. Please call with any questions. The patient will be discussed and reviewed with Dr. Bundy; changes to be made accordingly. History of Present Illness Consult date: 03/08/17 Requesting physician: Elizabeth Olmos Consult reason: Abnormal stress test Chief complaint: Rib/side pain History of present illness: Mr. Wade is a 56 year old male with PMH significant for HTN, HLD, obesity, and tobacco use who presented to [facility] with 1 week history of left-sided rib/upper abdominal pain. Pain is sharp and worsened with palpation, cough, or movement. Pain is resolved when he lays on his left side. He states he frequently sleep- walks and may have injured himself. He notes similar symptoms a few months ago, his PCP ordered echocardiogram which was completed at [facility], patient was told his echo was abnormal, however has had no follow-up. Upon arrival to ED, his BP was noted to be elevated, 195/96. Troponin was 0.04, 0.03, 0.04; therefore a nuclear stress test was recommended. Cardiology consulted today for abnormal stress test. Past Med Surg Social Fam HX - Past Medical History Attestation: Yes The following information was validated with the patient. Source: patient, old records reviewed Medical history: hyperlipidemia, hypertension Psychiatric history: no psych history - Past Surgical History Surgical History: no surgical history - Social History Smoking Status: Current every day smoker Packs per day: quit 1-2 mos ago; now e-cigarettes Smokeless Tobacco Status: No Alcohol use: occasionally Drug use: none - Family History Father Living Status: Hx Family Cardiac Disorders: Yes (HTN, hyperlipidemia) Hx Family Respiratory Disorders: No Hx Family Cancer: No Hx Family GI Disorders: No Hx Family Genitourinary Disorders: No Hx Family Endocrine Disorder: No Hx Family Musculoskeletal Disorders: No Hx Family Neuromuscular Disorders: No Hx Family Neurologic Disorders: Yes (CVA) Hx Family HEENT Disorders: No Hx Family Autoimmune Disorders: No Hx Family Reproductive Disorders: No Hx Family Psychosocial Disorders: No Hx Family Medical Disorders: No Medications and Allergies Albuterol Neb [Proventil Neb] 2.5 mg IH Q4HR PRN 03/07/17 [History] Lisinopril/Hydrochlorothiazide [Zestoretic 20-25 mg Tablet] 1 each PO DAILY [History] Tramadol HCl [Ultram] 50 mg PO TID PRN 03/07/17 [History] Allergies No Known Allergies Allergy (Verified 12/12/15 14:40) All Systems Review: A 10-system review of systems was performed and is negative for pertinent findings except as documented above in the HPI. - Cardiovascular Cardiovascular: as per HPI Physical Examination Vital Signs, Last 4 Hours Temp Pulse Resp BP Pulse Ox 03/08/17 07:12 98.1 F 76 16 158/106 91 General: Conversant, Other (morbidly obese) HEENT: Atraumatic, Normocephaly Cardiac: Reg Rate and Rhythm, Normal S1 and S2 Lungs: Other (Diminished) Neuro: Alert and responsive Abdomen: Soft Skin: No rashes noted on visualized skin Musculoskeletal: No Chest Wall Tenderness Extremities: Other (BLE edema, non-pitting) Results 03/08/17 04:20 03/08/17 04:20 Lab Results 03/07/17 03/07/17 03/08/17 16:01 16:01 04:20 WBC 9.4 Hgb 17.2 H D Hct 52.9 H Plt Count 116 L INR 1.0 APTT 30.8 D-Dimer 909 H Sodium Potassium Chloride Carbon Dioxide BUN Creatinine Glucose Calcium Magnesium Total Bilirubin AST ALT Alkaline Phosphatase 03/08/17 03/08/17 04:20 04:20 WBC Hgb Hct Plt Count INR APTT D-Dimer Sodium 140 Potassium 4.1 Chloride 99 Carbon Dioxide 30 H BUN 18 Creatinine 1.11 Glucose 115 H Calcium 9.8 Magnesium 2.5 Total Bilirubin 1.1 AST 54 H ALT 61 H Alkaline Phosphatase 63 Active Medications Acetaminophen (Tylenol) 650 mg PO Q6HR PRN PRN Reason: Mild Pain (1-3) or fever Stop: 09/05/17 20:06 Albuterol/Ipratropium (Duoneb) 3 ml IH [id number] PRN; Protocol PRN Reason: Shortness Of Breath/Wheezing Stop: 09/05/17 21:26 Alprazolam (Xanax) 0.25 mg PO TID PRN; Protocol PRN Reason: Anxiety Stop: 09/05/17 21:38 Last Admin: 03/07/17 21:53 Dose: 0.25 mg Amlodipine Besylate (Norvasc) 10 mg PO DAILY LENCHO PRN Reason: Protocol Stop: 09/07/17 09:01 Last Admin: 03/08/17 08:29 Dose: 10 mg Aspirin (Aspirin) 81 mg PO DAILY LENCHO Stop: 09/07/17 09:01 Last Admin: 03/08/17 08:29 Dose: 81 mg Atorvastatin Calcium (Lipitor) 80 mg PO HS LENCHO Stop: 09/05/17 21:31 Last Admin: 03/07/17 21:19 Dose: 80 mg Carvedilol (Coreg) 3.125 mg PO BIDWM LENCHO PRN Reason: Protocol Stop: 09/06/17 17:01 Last Admin: 03/08/17 08:28 Dose: 3.125 mg Cyclobenzaprine HCl (Flexeril) 10 mg PO BID PRN PRN Reason: Muscle Spasm Stop: 09/06/17 12:06 Heparin Sodium (Porcine) (Heparin) 5,000 unit SQ Q8HCO LENCHO Stop: 09/05/17 22:01 Last Admin: 03/08/17 05:41 Dose: Not Given Hydralazine HCl (Hydralazine) 10 mg IVP Q6HR PRN PRN Reason: Hypertension Stop: 09/06/17 12:06 Last Admin: 03/07/17 16:54 Dose: 10 mg Lisinopril (Zestril) 20 mg PO BID LENCHO PRN Reason: Protocol Stop: 09/07/17 09:01 Last Admin: 03/08/17 08:28 Dose: 20 mg Lorazepam (Ativan) 1 mg IVP Q8HR PRN PRN Reason: Anxiety Stop: 09/06/17 12:06 Oxycodone/Acetaminophen (Percocet 5/325) 1 each PO Q8HR PRN PRN Reason: SEVERE PAIN 8-10 Stop: 09/05/17 21:38 Last Admin: 03/08/17 08:29 Dose: 1 each - Imaging and Cardiology Stress Test: report reviewed Echo: pending Other Results: 12 hour tele: avg HR=68 SR. Nocturnal pauses, likely d/t GURPREET. - EKG Interpretation EKG results cardiology: personally reviewed Consult Discharge Plan - Plan Referrals: Norah Smyth CNP [Primary Care Provider] -
[2017-03-08] MEDS ORDERED: Perflutren Lipid Microsphere 1.3 ML in 0.9 % Sodium Chloride 8.7 ML IVP ONE (11:33)
[2017-03-08] MEDS: Acetaminophen 325 MG TABLET PO PRN ×2 (12:53→20:23)
[2017-03-08] MEDS ORDERED: Ketorolac 30 MG/ML VIAL IVP ONE (14:28)
--- NOTE | 2017-03-08 16:09 | ECHO - Doppler Report ---
Echo with Imaging Enhancement Agent Name: Ranulfo Wade Date of Study: 03/08/2017 Date: 1960 Ht: 71.0 in Medical Record#: [id number] Age: 56 Wt: 338.0 lb Gender: Male BSA: 2.64 Order #: [id number] Location: [facility] Room #: 3B46 Reading Physician: Terese Stein DO Miner Operator: KENNEDY YeeT, [facility] Ordering Physician: Elizabeth Olmos MD Primary Physician: None Indications: Abnormal stress test, Low EF Impressions: LVEF 60%. Not all myocardial segments were well visualized. Definity was used. Mild LV diastolic dysfunction. Moderate to severely increased LV wall thickness with small LV cavity. No LVOT obstruction. Normal right ventricular size and function. No significant valvular dysfunction. No pulmonary hypertension. Left Ventricular Wall Motion: Rest Echo Findings The mid inferior lateral and basal inferior lateral loja were not visualized. All other wall segments showed normal motion. Findings: Study Quality * Technically sub-optimal due to body habitus. ECG Findings * Normal sinus rhythm. Aorta * Not well visualized. Aortic Valve * No aortic regurgitation. * Aortic valve not well visualized. * No aortic stenosis. Mitral Valve * Mitral valve not well visualized. * No mitral stenosis. * Trace mitral regurgitation. Left Ventricle * Moderate to severe increase in LV wall thickness. No LVOTO. * Mild left ventricular diastolic dysfunction. * LVEF 60%. * Definity echo contrast was used. Tricuspid Valve * Tricuspid valve not well visualized. * No tricuspid regurgitation. Pulmonic Valve * Pulmonic valve is not well visualized. * No pulmonic stenosis. * No pulmonic regurgitation. Pulmonary Artery * Pulmonary artery not well visualized. Right Ventricle * Normal right ventricular structure and function. Left Atrium * Normal left atrial size. Right Atrium * Normal right atrial size. Interatrial Septum * Interatrial septum not well evaluated. Pericardium * There is no pericardial effusion present. IVC * The IVC is not well evaluated. History Hypertension Hypercholesteremia Contrast: Definity 1.3 ml in 8.7 ml of saline 3 ml. Measurements: BP: 144/ 88 2D Normal Values RVIDd: 3.20 cm <2.7 cm IVSd: 1.70 cm 0.6 - 1.0 cm LVIDd: 3.40 cm 3.7 - 5.6 cm LVPWd: 1.70 cm 0.6 - 1.1 cm LVIDs: 2.40 cm 1.5 - 3.6 cm AO: 2.70 cm < 4.0 cm LA: 4.30 cm 2.0 - 4.0cm %FS: 29.40 cm >25 % LA volume: 56 Mitral Valve Peak E:.64 m/sec Peak A:.68 m/sec E/A Ratio:0.9 Updated by Terese Stein on 03/08/2017 3:59:34 PM electronically signed on 03/08/2017 4:05:11 PM with status of Final Wall Motion Johnson: 1=Normal, 2=Hypokinesis, 3=Akinesis, 4=Dyskinesis, 5=Aneurysmal, 6=Hyperkinetic, X=Not Visualized (Blank)=Missing
--- NOTE | 2017-03-08 18:36 | Internal Med Progress Note ---
Date of Encounter: 03/08/17 Time of Encounter: 10:00 - Assessment and plan (1) Elevated troponin Current Visit: Yes Status: Acute Assessment and plan: mild elevated troponin. EKG no acute changes. no chest pain. no shortness of breath. A stress test was positive for mild reversible ischemia, LVEF 34%. Echocardiogram revealed LVEF 60%, mild diastolic dysfunction, moderate to severely increased LV wall thickness with a small LV cavity. Cardiology consult. Continue aspirin, statin, beta connie, lisinopril, and adjust blood pressure meds for better bp. (2) Hypertension Current Visit: Yes Status: Acute Assessment and plan: elevated BP. increase lisinopril to bid and amlodipine. hydralazine prn. Qualifiers: Hypertension type: essential hypertension Qualified Code(s): I10 - Essential (primary) hypertension (3) Abdominal pain Current Visit: Yes Status: Acute Assessment and plan: unclear etiology. 03/03: CT abdomen/pelvis showed no acute intraabdominal process. normal spleen and kidneys. small fat ventral hernia. elevated troponin at 0.04-0.03-0.04. continue pain control. add flexeril. adjust BP meds. stress test and echo ordered. continue aspirin, coreg, BP meds and start lasix. Qualifiers: Abdominal location: left upper quadrant Qualified Code(s): R10.12 - Left upper quadrant pain (4) Thrombocytopenia Current Visit: Yes Status: Acute Assessment and plan: new diagnosis. spleen is normal in CT abdomen/pelvis. Negative hepatitis, HIV. Normal INR, PTT, fibrinogen. Platelets 116. no bleeding. close monitoring. Awaiting Doppler of abdomen results. (5) Leg edema Current Visit: Yes Status: Acute Assessment and plan: echo ordered. trace protein in urine. Qualifiers: Laterality: bilateral Qualified Code(s): R60.0 - Localized edema (6) COPD (chronic obstructive pulmonary disease) Current Visit: Yes Status: Suspected Assessment and plan: stable. nebs. Qualifiers: COPD type: unspecified COPD Qualified Code(s): J44.9 - Chronic obstructive pulmonary disease, unspecified - Subjective Interval history: persistent left lower chest/upper abdomen pain. no nausea. no vomiting. - Constitutional Vitals: Temp Pulse Resp BP Pulse Ox 98.2 F 67 17 146/90 98 03/08/17 14:51 03/08/17 14:51 03/08/17 14:51 03/08/17 14:51 03/08/17 14:51 General appearance: Present: cooperative, A&O X 3, morbidly obese, pleasant, no acute distress, answers questions appropriately - Respiratory Respiratory exam: Present: CTAB - Cardiovascular Cardiovascular exam: Present: RRR - GI/Abdominal GI/Abdominal exam: Present: normal bowel sounds, soft. Absent: distended, tenderness - Extremities Exam Extremities exam: Present: pedal edema - Neurological Exam Neurological exam: Present: alert, oriented X3, no focal deficits, strengths equal and symetr throughout. Absent: facial droop, speech deficit - Skin Skin exam: Absent: rash Internal Medicine: Result - Labs CBC & Chem 7: 03/08/17 04:20 03/08/17 04:20 Labs: Short CBC 03/08/17 Range/Units 04:20 WBC 9.4 (4.3-11.1) K/mcL Hgb 17.2 H D (12.9-16.9) g/dL Hct 52.9 H (37.5-50.1) % Plt Count 116 L (140-400) K/mcL Neutrophils # 6.2 (1.6-8.9) K/mcL BMP 03/08/17 04:20 Sodium 140 Potassium 4.1 Chloride 99 Carbon Dioxide 30 H BUN 18 Creatinine 1.11 Glucose 115 H Calcium 9.8 Liver Function 03/08/17 Range/Units 04:20 Total Bilirubin 1.1 (0.2-1.2) mg/dL Direct Bilirubin 0.4 (0.0-0.5) mg/dL AST 54 H (5-34) Units/L ALT 61 H (0-55) Units/L Alkaline Phosphatase 63 (38-126) Units/L Albumin 3.9 (3.5-5.0) g/dL - ABG Interpretation ABG results: PT/INR, D-dimer PT 11.3 Seconds (9.4-12.1) 03/07/17 16:01 D-Dimer 909 ng/mLFEU (0-500) H 03/07/17 16:01 - Impressions Impressions Abdomen Ultrasound 03/08/17 13:00 IMPRESSION: No evidence of cholelithiasis or ancillary evidence of acute cholecystitis. Fatty liver. Spleen is upper limits of normal in size. Ventral hernia at the abdominal midline superior to the umbilicus. D/ / Jacobo Haas MD / Jacobo Haas MD Interpreting Provider: Jacobo Haas MD Consult Discharge Plan - Plan Referrals: Norah Smyth, DORIS [Primary Care Provider] -
[2017-03-08] MEDS: ALPRAZolam 0.25 MG TABLET PO PRN (20:23)
[2017-03-09] MEDS: *HR* OxyCODONE/APAP 5/325 TABLET PO PRN (06:43)
[2017-03-09] MEDS: *HR* Heparin 5,000 UNIT/ML VIAL SQ SCH (06:44)
[2017-03-09 07:26] VITALS: BP 114/62
[2017-03-09] MEDS: amLODIPine 5 MG TABLET PO SCH (07:52)
[2017-03-09] MEDS: Lisinopril 20 MG TABLET PO SCH (07:52)
[2017-03-09] MEDS: Aspirin 81 MG TAB.CHEW PO SCH (07:52)
--- NOTE | 2017-03-09 08:38 | Discharge Summary ---
Date of Encounter: 03/09/17 Time of Encounter: 08:34 - Discharge Diagnosis (1) Elevated troponin Priority: Primary Status: Acute (2) Hypertension Priority: Primary Status: Acute Qualifiers: Hypertension type: essential hypertension Qualified Code(s): I10 - Essential (primary) hypertension (3) Abdominal pain Priority: Primary Status: Acute Qualifiers: Abdominal location: left upper quadrant Qualified Code(s): R10.12 - Left upper quadrant pain (4) Thrombocytopenia Priority: Primary Status: Acute (5) Leg edema Priority: Primary Status: Acute Qualifiers: Laterality: bilateral Qualified Code(s): R60.0 - Localized edema (6) COPD (chronic obstructive pulmonary disease) Priority: Secondary Status: Suspected Qualifiers: COPD type: unspecified COPD Qualified Code(s): J44.9 - Chronic obstructive pulmonary disease, unspecified (7) Hyperglycemia Priority: Primary Status: Acute (8) Abnormal stress test Priority: Primary Status: Acute (9) Sleep apnea Priority: Secondary Status: Suspected Qualifiers: Sleep apnea type: obstructive Qualified Code(s): G47.33 - Obstructive sleep apnea (adult) (pediatric) - Discharge Medications Prescriptions: Amlodipine [Norvasc] 10 mg PO DAILY #60 tablet Aspirin 81 mg PO DAILY #60 tab.chew Atorvastatin [Lipitor] 80 mg PO HS #60 tablet Carvedilol [Coreg] 3.125 mg PO BIDWM #30 tablet Cyclobenzaprine [Flexeril] 10 mg PO BID PRN #7 tablet PRN Reason: Muscle Spasm Lisinopril [Zestril] 20 mg PO BID #60 tablet Metformin [Glucophage] 500 mg PO BIDWM #60 tablet Home Medications: Albuterol Neb [Proventil Neb] 2.5 mg IH Q4HR PRN 03/07/17 [History] Tramadol HCl [Ultram] 50 mg PO TID PRN 03/07/17 [History] Amlodipine [Norvasc] 10 mg PO DAILY #60 tablet 03/09/17 [Rx] Aspirin 81 mg PO DAILY #60 tab.chew 03/09/17 [Rx] Atorvastatin [Lipitor] 80 mg PO HS #60 tablet 03/09/17 [Rx] Carvedilol [Coreg] 3.125 mg PO BIDWM #30 tablet 03/09/17 [Rx] Cyclobenzaprine [Flexeril] 10 mg PO BID PRN #7 tablet 03/09/17 [Rx] Lisinopril [Zestril] 20 mg PO BID #60 tablet 03/09/17 [Rx] Metformin [Glucophage] 500 mg PO BIDWM #60 tablet 03/09/17 [Rx] Allergies/Adverse Reactions: Allergies No Known Allergies Allergy (Verified 12/12/15 14:40) Procedures/tests Complete & Pending: Procedures Performed prior 72 hours Category Date Time Status NM rosalind perf SPECT multi [NM] Routine Exams 03/06/17 21:38 Taken US abdomen limited [US] Stat Exams 03/08/17 13:00 Completed US abd pelvis doppler [US] Routine Ultrasound 03/08/17 18:09 Completed EV echocardiogram w enhance Routine Y 03/08/17 09:03 Completed SP pharm nuclear stress Routine Y 03/06/17 21:38 Completed Date of admission: 03/06/17 17:46 Primary care physician: Norah Smyth Consults: 03/08/17 09:02 Consult to Cardiology [CONS] Routine Comment: Consulting Provider: [facility] [place] Reason for Consult: abnormal stress test. low EF. Call Completed: Yes - Patient Status Disposition: Home, Self-Care Condition: Good Functional capacity at discharge: independent ambulation Overall status at discharge: patient is progressing back to baseline - Discharge Instructions Instructions: Lisinopril (By mouth), Cyclobenzaprine (By mouth), Aspirin (By mouth), Amlodipine (By mouth), Metformin (By mouth), Atorvastatin (By mouth), Carvedilol (By mouth) Follow Up With: Norah Smyth CNP [Primary Care Provider] - 03/16/17 1:30 pm (f/u in 1 week. pls make appt. F/U IN CARDIOLOGY CLINIC IN 2 WEEKS) Janice Tolentino CNP [Partnered Physician] - 03/31/17 10:30 am Additional Instructions: FOLLOW UP WITH YOUR PRIMARY CARE DOCTOR FOR HIGH BLOOD PRESSURE, ELEVATED SUGARS , LOW PLATELETS, LUNG FUNCTION TESTS, SLEEP STUDY, WEIGHT LOSS PROGRAM AND TOBACCO CESSATION. FOLLOW UP IN THE CARDIOLOGY CLINIC IN 2 WEEKS Check your blood pressure twice daily (same time in the morning and evening). WRITE DOWN THE NUMBERS AND BRING LOG TO DOCTOR'S APPOINTMENT. PLEASE STOP SMOKING. - Diet and Activity Activity: resume usual activities as tolerated Diet: diabetic diet, low fat, low cholesterol, low salt diet Interval History: Patient has no complaints. His left upper quadrant pain has improved. Hospital course: Mr. Wade is a 56 year old male with past medical history of hypertension, hyperlipidemia and morbid obesity who presented with a chief complaint of left upper quadrant flank pain. He is noncompliant with medications and follow-up appointments. He does not have an established primary care physician. 03/03: CT abdomen/pelvis showed no acute intraabdominal process. normal spleen and kidneys. small fat ventral hernia. He was started on pain medications with better control of his symptoms. Venous Doppler of the abdomen was unremarkable. elevated troponin at 0.04-0.03-0.04. stress test was positive for mild reversible ischemia, LVEF 34%. Echocardiogram revealed LVEF 60%, mild diastolic dysfunction, moderate to severely increased LV wall thickness with a small LV cavity. Platelets 116. Negative hepatitis, HIV. Normal INR, PTT, fibrinogen. No bleeding. Hemoglobin A1c was 6.7. Cardiology was consulted and they recommended medical management and outpatient follow-up in 2 weeks. Her blood pressure medications were adjusted with better control. PLAN: FOLLOW UP WITH YOUR PRIMARY CARE DOCTOR FOR HIGH BLOOD PRESSURE, ELEVATED SUGARS, LOW PLATELETS, LUNG FUNCTION TESTS, SLEEP STUDY, WEIGHT LOSS PROGRAM AND TOBACCO CESSATION. FOLLOW UP IN THE CARDIOLOGY CLINIC IN 2 WEEKS. She counseled to quit smoking. I explained in detail all the findings, diagnosis, treatment options infarct or management to the patient. He relates understanding and agree with the plan. All questions answered. - Time Spent with Patient Total time spent providing and/or coordinating discharge services: - Constitutional Vitals: Temp Pulse Resp BP Pulse Ox 97.6 F 62 15 114/62 92 03/09/17 07:25 03/09/17 07:25 03/09/17 07:25 03/09/17 07:25 03/09/17 07:25 General appearance: Present: cooperative, A&O X 3, morbidly obese, pleasant, no acute distress, answers questions appropriately - Respiratory Respiratory exam: Present: CTAB - Cardiovascular Cardiovascular exam: Present: RRR - GI/Abdominal GI/Abdominal exam: Present: normal bowel sounds, soft. Absent: distended, tenderness - Extremities Exam Extremities exam: Absent: pedal edema - Neurological Exam Neurological exam: Present: alert, oriented X3, no focal deficits, strengths equal and symetr throughout. Absent: facial droop, speech deficit - Skin Skin exam: Absent: rash
== END 2017-03-09 12:18 | disposition home or self-care (01) ==
LOC: EMEROO 15:36 → 3BNU 15:36 → SUATTDRO 17:46 → 3BNU 18:49
PROVIDERS: ADMIT Internal Medicine; ATTEND Internal Medicine